=== PATIENT | female | born 1985 | race Hispanic/Latino ===

== ENCOUNTER → 2024-04-28 16:09 | Outpatient (REF) | payer OTHER, SELFPAY ==
[2024-04-28 17:02] LABS: % Basophils 0.6 % (0-2); % Eosinophils 2.1 % (0-6); % Immature Granulocytes 0.4 % (0-0.5); % Monocytes 4.8 % (1.7-9.3); % Neutrophils 62.1 % (42.2-75.2); Absolute Basophils 0.1 10^3/uL (0-0.2); Absolute Eosinophils 0.2 10^3/uL (0-0.7); Absolute Lymphocytes 2.3 10^3/uL (1.2-3.4); Absolute Monocytes 0.4 10^3/uL (0.1-0.6); Absolute Neutrophils 4.8 10^3/uL (1.4-6.5); Hematocrit 35.1 % (37.0-47.0); Hemoglobin 11.9 g/dL (12.0-16.0); Mean Corp Hgb Conc. 33.9 g/dL (33.0-37.0); Mean Corpuscular Hgb 28.7 pg (27.0-31.0); Mean Corpuscular Volume 84.8 fL (81.0-99.0); Mean Platelet Volume 9.4 fL (7.4-10.4); Nucleated Red Blood Cells % 0 %; Platelet Count 349 10^3/uL (130-400); Red Blood Cell Count 4.14 10^6/uL (4.20-5.40); Red Cell Dist. Width 13.3 % (11.5-14.5); White Blood Cell Count 7.7 10^3/uL (4.8-10.8)
[2024-04-28 17:28] LABS: Erythrocyte Sed Rate 18 mm/hour (0-20)
[2024-04-28 18:01] LABS: Ferritin 8.5 ng/ml (6.24-137)
[2024-04-30 21:44] LABS: ANA, IgG Reflex to HEp-2 None Detected (None Detected)
== END ==
LOC: REG 16:09
PROVIDERS: ATTENDING PHYSICIAN Internal Medicine
DX: M19.90 Unspecified osteoarthritis, unspecified site (principal)
CPT/HCPCS: 36415; 82728; 85025; 85652; 86038; 86430; 87338

== ENCOUNTER → 2024-05-11 15:11 | Outpatient (REF) | payer OTHER, SELFPAY ==
[2024-05-12 09:26] LABS: Glycohemoglobin (HgbA1c) 5.6 % (4.0-5.6)
== END ==
LOC: CLINIC 15:11
PROVIDERS: ATTENDING PHYSICIAN Nurse Practitioner Adult Health
DX: R73.03 Prediabetes (principal)
CPT/HCPCS: 36415; 83036

== ENCOUNTER → 2024-07-04 12:20 | Outpatient (REF) | payer OTHER, SELFPAY ==
[2024-07-07 00:38] LABS: H. pylori Antigen, Fecal Negative (Negative)
== END ==
LOC: REG 12:20
DX: A04.8 Other specified bacterial intestinal infections (principal)
CPT/HCPCS: 36415; 87338

== ENCOUNTER → 2024-11-22 15:33 | Outpatient (REF) | payer OTHER, SELFPAY ==
[2024-11-22 17:57] LABS: Vitamin D, 25-OH*** 38.5 ng/mL (30-80)
== END ==
LOC: CLINIC 15:33
PROVIDERS: ATTENDING PHYSICIAN Nurse Practitioner Adult Health
DX: E55.9 Vitamin D deficiency, unspecified (principal)
CPT/HCPCS: 36415; 82306